=== PATIENT | male | born 1965 | race Caucasian/White ===

== ENCOUNTER 2018-10-30 07:17 | Day surgery (SDC) | payer OTHER ==
[2018-10-27 13:49] VITALS: BMI 24.2
[2018-10-30] MEDS ORDERED: BUPIVACAINE HCL/EPINEPHRINE/PF 30 ML VIAL IJ ONE (09:42)
[2018-10-30] MEDS ORDERED: ONDANSETRON 4 MG/2 ML VIAL ONE ×2 (09:50→11:07)
[2018-10-30] MEDS ORDERED: DEXAMETHASONE SOD PHOSPHATE 4 MG/1 ML VIAL ONE (09:50)
[2018-10-30] MEDS ORDERED: MIDAZOLAM HCL 2 MG/2 ML SINGLE DOSE VIAL ONE (09:50)
[2018-10-30] MEDS ORDERED: PROPOFOL 20 ML ONE ×3 (09:59→10:34)
[2018-10-30] MEDS ORDERED: ceFAZolin SODIUM 1 GM VIAL ONE ×2 (09:59→10:36)
[2018-10-30] MEDS ORDERED: SODIUM CHLORIDE 0.9% P/F 10 ML VIAL IJ ONE (10:36)
--- NOTE | 2018-10-30 11:00 | OP ---
Operative Note - Note: Operative Date: 10/30/18 Pre-Operative Diagnosis: Right knee MMT, anterior/ trochlea cartilage defect Operation: RKA, microfracture, partial menisectomy Surgeon: Venkata Hawk Anesthesiologist/PAINT LABORATORY TECHNICIAN: Arash Gerber
--- NOTE | 2018-10-30 11:01 | DS ---
Physical Examination Vital Signs: Vital Signs Temperature 97.6 F 10/30/18 07:35 Pulse Rate 70 10/30/18 07:35 Respiratory Rate 20 10/30/18 07:35 Blood Pressure 114/76 10/30/18 07:35 O2 Sat by Pulse Oximetry (%) 97 10/30/18 07:35 Discharge Summary Reason For Visit: MEDIAL MENISCAL TEAR RIGHT KNEE Condition: Good - Instructions Diet, Activity, Other Instructions: Post Operative Instructions: Knee Arthroscopy Dr Venkata Hawk 1. Pain following an arthroscopy is variable. Some patients will have more pain than others. You have been provided with a prescription for medication that contains a narcotic. You are not allowed to drive while on this medication. You should NOT take Tylenol (Acetaminophen) when taking the pain medication ( it will result in an overdose). Feel free to take medications such as Ibuprofen or Naprosyn in addition to the pain medicine if you do not have any problems with the NSAID class of medications. 81mg of aspirin, twice a day for one week. discussed prior to surgery. 2. You should remove the bandages and shower in 24 hours unless directed otherwise. You are not allowed to bathe or go swimming until the sutures are removed. Put band-aids on the sutures after your shower and do not put any creams or lotions over the incisions. 3. You are allowed to put all your weight on the leg and bend your knee\ 4. Apply ice to the knee for 15 min every hour or so. You may continue this for as many days as you like. 5. Please call the office to schedule a visit to have your sutures removed. 6. If for any reason you believe you may have an infection or are concerned, please feel free to call me. I can be reached through our office number 24 hours a day. 7. Please call our office with any questions; we will review the surgical findings during your post operative visit. Disposition: HOME - Home Medications Comprehensive Discharge Medication List: Ambulatory Orders Pantoprazole Sodium [Protonix] 40 mg PO Q2D 10/27/18
[2018-10-30] MEDS ORDERED: oxyCODONE HCL 5 MG TABLET PO PRN ×2 (11:19)
[2018-10-30] MEDS ORDERED: ONDANSETRON 4 MG/2 ML VIAL IVPUSH PRN (11:19)
[2018-10-30] MEDS ORDERED: LACTATED RINGERS SOLUTION 1,000 ML IV SCH (11:30)
[2018-10-30] MEDS ORDERED: oxyCODONE HCL 5 MG TABLET ONE (11:36)
[2018-10-30 12:15] VITALS: TEMP 97.5
[2018-10-30 13:35] VITALS: PULSE 48
[2018-10-30 13:37] VITALS: BP 111/72
--- NOTE | 2018-11-04 14:03 | PATH ---
Surgical Pathology Report Patient Name: LLOYD NIETO Med. Rec. #: [id number] /Age/Gender: 1965 (Age: 52) / M Account: [id number] Location: [facility] AMBULATORY Taken: 10/30/2018 Received: 10/30/2018 Reported: 11/04/2018 Physicians: Venkata Hawk M.D. Specimen(s) Received RIGHT KNEE SHAVINGS Clinical History Medial meniscal tear, right knee Final Diagnosis KNEE, RIGHT, ARTHROSCOPIC SHAVINGS: CARTILAGE, FIBROCOLLAGENOUS AND FIBROSYNOVIAL TISSUE. Electronically Signed Clarisse Ware M.D. Gross Description Received in formalin, labeled "right knee shavings" are multiple fragments of light pantoja and yellow-pantoja soft tissue having an aggregate are 2.2 x 1 x 0.2 cm. Retail Coverage Merchandiser tissue is submitted in one cassette. AE/11/02/2018 ebram/11/02/2018
== END 2018-10-30 13:20 | disposition home or self-care (01) ==
LOC: FASU 07:17
PROVIDERS: ATTEND Orthopaedic Surgery
PROC: 0SBC4ZZ Excision of Right Knee Joint, Percutaneous Endoscopic Approach (ICD-10-PCS; 2018-10-30)
PROC: 0SQC4ZZ Repair Right Knee Joint, Percutaneous Endoscopic Approach (ICD-10-PCS; 2018-10-30)
PROC: 0S9C3ZZ Drainage of Right Knee Joint, Percutaneous Approach (ICD-10-PCS; 2018-10-30)
PROC: 0SBC4ZZ Excision of Right Knee Joint, Percutaneous Endoscopic Approach (ICD-10-PCS; principal; 2018-10-30 10:15)
DX: S83.241A Other tear of medial meniscus, current injury, right knee, initial encounter (principal); M67.461 Ganglion, right knee; M24.10 Other articular cartilage disorders, unspecified site; X58.XXXA Exposure to other specified factors, initial encounter; Y93.9 Activity, unspecified; Y92.9 Unspecified place or not applicable
CPT/HCPCS: 88304-TC; 94760